=== PATIENT | male | born 1940 | race Caucasian/White ===

== ENCOUNTER 2018-09-17 02:05 | Inpatient (IN) | payer MEDICARE ==
[~2018-09-17] VITALS: Ht 177.8 cm; Wt 107.7 kg
[~2018-09-17 02:05] MED LIST: ACET-2119 PO; ASPI-611 PO; CARV-50 PO; FURO40TA4 PO; LOSA50TA64 PO; NITR0.4T48 SL; SPIR25TA PO
[2018-09-17 02:42] LABS: BASOPHILS # (AUTO) 0.1 X10'3 (0-0.2); BASOPHILS % (AUTO) 1.2 % (0-1); EOSINOPHILS # (AUTO) 0.2 X10'3 (0-0.9); EOSINOPHILS % (AUTO) 1.6 % (0-6); HEMOGLOBIN 14.9 g/dl (14.0-17.9); LYMPHOCYTES # (AUTO) 1.5 X10'3 (1.1-4.8); LYMPHOCYTES % (AUTO) 14.8 % (21-51); MEAN CORPUSCULAR HEMOGLOBIN 29.4 PG (27.0-31.0); MEAN CORPUSCULAR HGB CONC 32.4 % (33.0-36.5); MEAN CORPUSCULAR VOLUME 90.7 FL (78-98); MEAN PLATELET VOLUME 9.3 FL (7.4-10.4); MONOCYTES # (AUTO) 1.3 X10'3 (0-0.9); MONOCYTES % (AUTO) 12.7 % (2-12); NEUTROPHILS # (AUTO) 6.9 X10'3 (1.8-7.7); NEUTROPHILS % (AUTO) 69.7 % (42-75); PLATELET COUNT 222 X10'3 (140-440); RED BLOOD COUNT 5.07 X10'6 (4.70-6.10); RED CELL DISTRIBUTION WIDTH 16.8 % (11.5-14.5); WHITE BLOOD COUNT 9.9 X10'3 (4.5-11.0)
[2018-09-17 02:58] LABS: ALANINE AMINOTRANSFERASE 58 U/L (12-78); ALBUMIN 3.5 G/DL (3.4-5.0); ALBUMIN/GLOBULIN RATIO 1.3 (1.1-1.5); ALKALINE PHOSPHATASE 93 IU/L (46-116); ANION GAP 15 (8-16); ASPARTATE AMINO TRANSFERASE 45 U/L (10-37); BILIRUBIN,TOTAL 1.3 MG/DL (0.1-1.0); BLOOD UREA NITROGEN 50 MG/DL (7-18); BUN/CREATININE RATIO 31.3 (5.4-32.0); CALCIUM 8.3 MG/DL (8.5-10.1); CHLORIDE 101 MMOL/L (99-107); GLUCOSE 116 MG/DL (70-104); SODIUM 140 MMOL/L (135-145); TOTAL CARBON DIOXIDE 23.7 MMOL/L (24-32); TOTAL PROTEIN 6.1 G/DL (6.4-8.2); eGFR 42 ML/MIN
[2018-09-17 02:59] LABS: POTASSIUM 4.7 MMOL/L (3.5-5.1)
[2018-09-17] MEDS ORDERED: aspirin 81mg tab.chew PO ONE (03:50)
[2018-09-17] MEDS ORDERED: furosemide 10 MG/1 ML 10ml inj IV ONE (03:50)
[2018-09-17] MEDS ORDERED: LOSARTAN POTASSIUM 25 MG (03:51)
[2018-09-17] MEDS ORDERED: FUROSEMIDE 40 MG (03:51)
[2018-09-17] MEDS ORDERED: SPIRONOLACTONE 25 MG (03:51)
[2018-09-17] MEDS ORDERED: HYDROCODONE/ACETAMINOPHEN 10-3 (03:51)
[2018-09-17] MEDS ORDERED: METOLAZONE 5 MG (03:51)
[2018-09-17] MEDS ORDERED: HYDR-4353 PO (03:56)
[2018-09-17] MEDS ORDERED: ondansetron/PF 4mg/2ml inj IV PRN (04:25)
[2018-09-17] MEDS ORDERED: magnesium hydroxide 30ml (MOM) UD suspension PO PRN (04:25)
[2018-09-17] MEDS ORDERED: HYDROcodone/acetaminophen 5mg/325mg tablet PO PRN (04:25)
[2018-09-17] MEDS ORDERED: acetaminophen 325mg tablet PO PRN ×2 (04:25)
[2018-09-17] MEDS ORDERED: mag hydrox/Alum hydrox/simeth 30ml oral suspension PO PRN (04:25)
[2018-09-17] MEDS ORDERED: potassium Cl 20 mEq SR tablet PO PRN ×2 (04:25)
[2018-09-17] MEDS ORDERED: potassium Cl 40MEQ/NS 500ml 500 ML IV PRN ×2 (04:25)
[2018-09-17] MEDS ORDERED: nitroGLYCERIN 0.4mg SUBLingual tab SL PRN (04:30)
--- NOTE | 2018-09-17 05:55 | NUR ---
This nurse attempted to call report to pcu nurse at 0548, nurse refused to take report and stated she will have the day shift nurse call me back
--- NOTE | 2018-09-17 06:17 | NUR ---
RECEIVED ON A WHEELCHAIR,ALERT AND ORIENTED X4.AWAITING FOR AIR TRAFFIC SUPERVISOR TO RECEIVED REPORT.
--- NOTE | 2018-09-17 06:31 | NUR ---
attempted to call report for a second time at 06 after floor nurse stated she would have day shift nurse contact me at [phone], once again floor nurses refused to take report. Day shift rn Nelson given sbar report on this pt
--- NOTE | 2018-09-17 06:50 | NUR ---
Patient in room ED 9. I have received report from RUTH RAMIREZ and had the opportunity to ask questions and assume patient care. Pt transferred to room 3026B on PCU. Pt is alert and oriented, needs addressed. Patient reports no pain or SOB. Vitals stable.
[2018-09-17 07:00] VITALS: BP 123/71
[2018-09-17] MEDS: aspirin 81mg tablet.DR PO SCH (08:00)
[2018-09-17] MEDS: K and/or MAG REPLACEMENT MC SCH (08:00)
[2018-09-17] MEDS: carVEDilol 12.5mg tablet PO SCH ×2 (09:12→20:01)
[2018-09-17] MEDS: furosemide 10 MG/1 ML 10ml inj IV SCH ×2 (09:13→15:29)
[2018-09-17] MEDS: spironolactone 25 MG tablet PO SCH (09:14)
[2018-09-17] MEDS: aspirin 81mg tab.chew PO SCH (09:14)
[2018-09-17] MEDS: enoxaparin 40mg/0.4ml syringe SUBCUT SCH (09:16)
[2018-09-17 11:00] VITALS: BP 107/70
[2018-09-17 15:00] VITALS: BP_SYST 102; BP_SYST 82; BP_DIAS 41; BP_DIAS 62
[2018-09-17] MEDS ORDERED: lactose-reduced food (Ensure Enlive) - 237ml bottle PO SCH (18:00)
--- NOTE | 2018-09-17 18:00 | NUR ---
Patient in room PCU 3026. I have received report from RUTH Aburto and had the opportunity to ask questions and assume patient care.
--- NOTE | 2018-09-17 18:30 | NUR ---
Problems reprioritized. Patient report given, questions answered & plan of care reviewed with RUTH ZACARIAS.
[2018-09-17 19:00] VITALS: BP 102/62
[2018-09-17] MEDS ORDERED: temazepam 15mg capsule PO PRN (21:00)
[2018-09-17] MEDS ORDERED: losartan 50mg tablet PO SCH (21:00)
[2018-09-17 23:00] VITALS: BP 93/56
[2018-09-18] MEDS: HYDROcodone/acetaminophen 10/325mg tab PO PRN ×2 (00:20→08:35)
[2018-09-18] MEDS: furosemide 10 MG/1 ML 10ml inj IV SCH ×2 (00:20→08:39)
[2018-09-18 03:00] VITALS: BP 89/57
[2018-09-18 04:46] LABS: BASOPHILS % (AUTO) 0.4 % (0-1); EOSINOPHILS # (AUTO) 0.2 X10'3 (0-0.9); EOSINOPHILS % (AUTO) 2.4 % (0-6); HEMATOCRIT 42.5 % (42.0-52.0); HEMOGLOBIN 13.9 g/dl (14.0-17.9); LYMPHOCYTES # (AUTO) 1.7 X10'3 (1.1-4.8); LYMPHOCYTES % (AUTO) 20.5 % (21-51); MEAN CORPUSCULAR HEMOGLOBIN 29.6 PG (27.0-31.0); MEAN CORPUSCULAR HGB CONC 32.7 % (33.0-36.5); MEAN CORPUSCULAR VOLUME 90.6 FL (78-98); MEAN PLATELET VOLUME 9.4 FL (7.4-10.4); MONOCYTES # (AUTO) 1.1 X10'3 (0-0.9); MONOCYTES % (AUTO) 13.8 % (2-12); NEUTROPHILS # (AUTO) 5.2 X10'3 (1.8-7.7); NEUTROPHILS % (AUTO) 62.9 % (42-75); PLATELET COUNT 180 X10'3 (140-440); RED BLOOD COUNT 4.69 X10'6 (4.70-6.10); RED CELL DISTRIBUTION WIDTH 16.8 % (11.5-14.5); WHITE BLOOD COUNT 8.3 X10'3 (4.5-11.0)
[2018-09-18 05:02] LABS: ALBUMIN 3.2 G/DL (3.4-5.0); ANION GAP 9 (8-16); BLOOD UREA NITROGEN 53 MG/DL (7-18); BUN/CREATININE RATIO 30.5 (5.4-32.0); CALCIUM 8.5 MG/DL (8.5-10.1); CHLORIDE 98 MMOL/L (99-107); CHOL/HDL RATIO 3.7 (0.00-4.99); CHOLESTEROL 73 MG/DL (0-200); CREATININE 1.74 MG/DL (0.60-1.10); GLUCOSE 120 MG/DL (70-104); HDL CHOLESTEROL 20 MG/DL (35-60); LDL CHOLESTEROL 57 MG/DL (50-100); MAGNESIUM 2.2 MG/DL (1.5-2.4); PHOSPHORUS 4.2 MG/DL (2.3-4.5); POTASSIUM 3.7 MMOL/L (3.5-5.1); SODIUM 138 MMOL/L (135-145); TRIGLYCERIDES 53 MG/DL (20-135); eGFR 38 ML/MIN
[2018-09-18 06:00] VITALS: BP 91/55
--- NOTE | 2018-09-18 06:30 | NUR ---
Patient in room PCU 3026. I have received report from RUTH Cramer and had the opportunity to ask questions and assume patient care.
[2018-09-18] MEDS: aspirin 81mg tablet.DR PO SCH (08:00)
[2018-09-18] MEDS: carVEDilol 12.5mg tablet PO SCH (08:00)
[2018-09-18] MEDS: K and/or MAG REPLACEMENT MC SCH (08:00)
[2018-09-18] MEDS: aspirin 81mg tab.chew PO SCH (08:00)
[2018-09-18] MEDS: enoxaparin 40mg/0.4ml syringe SUBCUT SCH (08:33)
[2018-09-18] MEDS: spironolactone 25 MG tablet PO SCH (08:34)
--- NOTE | 2018-09-18 08:35 | NUR ---
bp @ 0600 91/55. BP @0835 101/63. Lasix given. held coreg 12.5 mg, due to low bp trend.
[2018-09-18 11:00] VITALS: BP 99/67
--- NOTE | 2018-09-18 14:35 | NUR ---
PATIENT LEFT ALERT AND ORIENTED, STABLE FOR DISCHARGE. PATIENT RECEIVED ALL PATIENT TEACHING ALONG WITH DISCHARGE PACKET. PATIENT KNOWS THAT WALKER IS TO BE DELIVERED TO HOME. PATIENT UNDERSTANDS TO FOLLOW UP WITH PCP WITHIN 1 WEEK AND TO RESUME ALL CURRENT MEDICATIONS. IV REMOVED, CANNULA INTACT. TELE REMOVED AND RETURNED TO CUSTOMER CONSULTING MANAGER. ALL QUESTIONS AND CONCERNS ADDRESSED. PATIENT WHEELED DOWNSTAIRS TO LEAVE VIA PRIVATE VEHICLE WITH FAMILY MEMBER. ALL BELONGINGS LEFT WITH PATIENT. ROOM STRIPPED.
== END 2018-09-18 14:36 | disposition home health service (06) | DRG 280 ==
LOC: ER 02:05 → ED HOLD 04:24 → PCU 3S 07:58
PROVIDERS: ADMIT Hospitalist; ATTEND Family Medicine
DX: I13.0 Hypertensive heart and chronic kidney disease with heart failure and stage 1 through stage 4 chronic kidney disease, or unspecified chronic kidney disease (principal); I21.A1 Myocardial infarction type 2; I50.23 Acute on chronic systolic (congestive) heart failure; I42.9 Cardiomyopathy, unspecified; N18.9 Chronic kidney disease, unspecified; I25.10 Atherosclerotic heart disease of native coronary artery without angina pectoris; Z60.2 Problems related to living alone; Z95.810 Presence of automatic (implantable) cardiac defibrillator; Z88.1 Allergy status to other antibiotic agents; Z87.891 Personal history of nicotine dependence
CPT/HCPCS: 36415; 71045; 80048; 80053; 80061; 83735; 83880; 84100; 84484; 85025; 87070; 93005; 96374; 97110; 97116; 97162; 99285; G0378; J1650; J1940

== ENCOUNTER 2020-07-06 17:11 | Inpatient (IN) | payer MEDICARE ==
[~2020-07-06] VITALS: Ht 175.3 cm; Wt 98.8 kg
[~2020-07-06 17:11] MED LIST changes: -ACET-2119 PO; -ASPI-611 PO; -CARV-50 PO; +CARV25TA2 PO; +FURO-149 PO; -FURO40TA4 PO; +HYDR-3972 PO; +LOSA25TA41 PO; -LOSA50TA64 PO; -NITR0.4T48 SL; -SPIR25TA PO; +SPIR25TA5 PO
[2020-07-06] MEDS ORDERED: furosemide 10 MG/1 ML 10ml inj IV ONE ×2 (18:50→20:10)
[2020-07-06 19:11] LABS: BASOPHILS # (AUTO) 0.1 X10'3 (0-0.2); BASOPHILS % (AUTO) 0.6 % (0-1); EOSINOPHILS % (AUTO) 0.3 % (0-6); HEMATOCRIT 49.5 % (42.0-52.0); LYMPHOCYTES # (AUTO) 2.4 X10'3 (1.1-4.8); LYMPHOCYTES % (AUTO) 20.8 % (21-51); MEAN CORPUSCULAR HEMOGLOBIN 29.7 PG (27.0-31.0); MEAN CORPUSCULAR HGB CONC 32.3 g/dL (33.0-36.5); MEAN CORPUSCULAR VOLUME 91.7 FL (78-98); MEAN PLATELET VOLUME 9.8 FL (7.4-10.4); MONOCYTES # (AUTO) 1.6 X10'3 (0-0.9); NEUTROPHILS # (AUTO) 7.4 X10'3 (1.8-7.7); NEUTROPHILS % (AUTO) 64.3 % (42-75); PLATELET COUNT 188 X10'3 (140-440); RED CELL DISTRIBUTION WIDTH 17.3 % (11.5-14.5); WHITE BLOOD COUNT 11.5 X10'3 (4.5-11.0)
[2020-07-06 19:23] LABS: ALANINE AMINOTRANSFERASE 32 U/L (12-78); ALBUMIN 3.9 G/DL (3.4-5.0); ALBUMIN/GLOBULIN RATIO 1.2 (1.1-1.5); ALKALINE PHOSPHATASE 75 IU/L (46-116); ANION GAP 11 (8-16); ASPARTATE AMINO TRANSFERASE 23 U/L (10-37); BILIRUBIN,TOTAL 2.1 MG/DL (0.1-1.0); BLOOD UREA NITROGEN 112 MG/DL (7-18); BUN/CREATININE RATIO 52.6 (5.4-32.0); CHLORIDE 100 MMOL/L (99-107); CREATININE 2.13 MG/DL (0.60-1.10); GLUCOSE 106 MG/DL (70-104); POTASSIUM 4.7 MMOL/L (3.5-5.1); SODIUM 136 MMOL/L (135-145); TOTAL CARBON DIOXIDE 24.6 MMOL/L (24-32); TOTAL PROTEIN 7.2 G/DL (6.4-8.2); eGFR 30 ML/MIN
[2020-07-06] MEDS ORDERED: heparin 10,000 units/1 ML INJ IV ONE (19:35)
[2020-07-06] MEDS: heparin 25,000 UNIT/250ml bag 250 ML IV SCH (19:50)
[2020-07-06] MEDS ORDERED: ZAR2.5T PO (19:56)
[2020-07-06] MEDS ORDERED: ondansetron/PF 4mg/2ml inj IV ONE ×2 (20:25→20:45)
[2020-07-06 20:40] LABS: ABG BASE EXCESS -2.3 mmol/L (-2.0-2.0); ABG OXYGEN SATURATION 95.9 % (94-97); ABG PCO2 (T) 41.5 mmHg (35.0-48.0); ABG PO2 (T) 89.9 mmHg (75.0-100.0); ALLEN'S TEST POSITIVE; FCOHb 0.9 % (0.0-3.9); FLOW 2 L/min; FMetHb 0.2 % (0.0-1.5); FO2Hb 94.8 % (94-97)
[2020-07-06] MEDS ORDERED: nitroGLYCERIN 1gm ointment UD TP ONE (20:55)
[2020-07-06 22:21] LABS: C-REACTIVE PROTEIN 1.87 MG/DL (0.0-0.5)
[2020-07-06] MEDS ORDERED: CefTRIAXone/D5W-Rocephin 1gm 50 ML IV ONE (23:25)
[2020-07-07 01:12] LABS: BASOPHILS # (AUTO) 0.1 X10'3 (0-0.2); BASOPHILS % (AUTO) 0.9 % (0-1); EOSINOPHILS % (AUTO) 0.1 % (0-6); HEMATOCRIT 48.2 % (42.0-52.0); LYMPHOCYTES # (AUTO) 2.5 X10'3 (1.1-4.8); LYMPHOCYTES % (AUTO) 22.3 % (21-51); MEAN CORPUSCULAR HEMOGLOBIN 30.4 PG (27.0-31.0); MEAN CORPUSCULAR HGB CONC 33.2 g/dL (33.0-36.5); MEAN CORPUSCULAR VOLUME 91.8 FL (78-98); MEAN PLATELET VOLUME 9.3 FL (7.4-10.4); MONOCYTES # (AUTO) 1.5 X10'3 (0-0.9); MONOCYTES % (AUTO) 13.7 % (2-12); NEUTROPHILS # (AUTO) 6.9 X10'3 (1.8-7.7); PLATELET COUNT 163 X10'3 (140-440); RED BLOOD COUNT 5.25 X10'6 (4.70-6.10); RED CELL DISTRIBUTION WIDTH 16.8 % (11.5-14.5)
[2020-07-07] MEDS ORDERED: HYDROcodone/acetaminophen 10/325mg tab PO ONE (01:35)
[2020-07-07] MEDS ORDERED: HYDROcodone/acetaminophen 5mg/325mg tablet PO PRN (01:50)
[2020-07-07] MEDS ORDERED: magnesium Cl slow-release 64mg tablet PO PRN (01:50)
[2020-07-07] MEDS ORDERED: acetaminophen 325mg tablet PO PRN ×2 (01:50)
[2020-07-07] MEDS ORDERED: mag hydrox/Alum hydrox/simeth 30ml oral suspension PO PRN (01:50)
[2020-07-07] MEDS ORDERED: potassium CL 10mEq/100ml bag 100 ML IV PRN ×2 (01:50)
[2020-07-07] MEDS ORDERED: magnesium 2GM in 50ml NS 50 ML IV PRN (01:50)
[2020-07-07] MEDS ORDERED: potassium Cl 20 mEq SR tablet PO PRN ×2 (01:50)
[2020-07-07] MEDS ORDERED: ondansetron/PF 4mg/2ml inj IV PRN (01:50)
[2020-07-07] MEDS ORDERED: magnesium 4gm in 100ml NS 100 ML IV PRN (01:50)
[2020-07-07] MEDS ORDERED: HYDROcodone/acetaminophen 10/325mg tab PO PRN (01:55)
--- NOTE | 2020-07-07 05:40 | NUR ---
Received report from Beba MIRANDA in the ER. Patient is going to be brought to PCU and go into room 3024Q.
--- NOTE | 2020-07-07 05:50 | NUR ---
Patient just got here from ER. He is A&Ox4 and in no apparent distress. He came up with all of his belongings and is in a bed resting comfortably. Hooked patient up to tele monitor.
--- NOTE | 2020-07-07 06:02 | NUR ---
Heparin was on hold when patient came up from ER. PTT 126, unknown stop time. Tried to call ER nurse but was unable to get a hold of nurse. Lab trung new PTT at 0533, awaiting results.
--- NOTE | 2020-07-07 06:06 | NUR ---
Per ER nurse heparin was stopped right before patient came up from ER.
--- NOTE | 2020-07-07 06:21 | NUR ---
Problems reprioritized. Patient report given, questions answered & plan of care reviewed with Haylie MIRANDA.
--- NOTE | 2020-07-07 06:30 | NUR ---
Patient in room PCU 3026. I have received report from Rachele and had the opportunity to ask questions and assume patient care.
[2020-07-07] MEDS: furosemide 40mg/4ml inj IV SCH ×2 (08:00→20:00)
[2020-07-07] MEDS: spironolactone 25 MG tablet PO SCH (08:00)
[2020-07-07] MEDS: losartan 25mg tablet PO SCH (08:00)
[2020-07-07] MEDS: enoxaparin 40mg/0.4ml syringe SUBCUT SCH ×2 (08:00→15:54)
[2020-07-07] MEDS: K and/or MAG REPLACEMENT MC SCH ×2 (08:00→20:00)
[2020-07-07] MEDS: metolazone 2.5mg tablet PO SCH (08:00)
[2020-07-07] MEDS: heparin 25,000 UNIT/250ml bag 250 ML IV SCH (08:53)
[2020-07-07 10:48] VITALS: BP 104/58
[2020-07-07 11:00] VITALS: BP 126/72
--- NOTE | 2020-07-07 13:49 | NUR ---
promotional table spacer promotional table spacer Page Sent promotional table spacer PAGER ID: [phone] MESSAGE: [id number] Boubacar Pt came up from ED on Heparin. Pharmacy wants my heparin drip stopped now that order is over 12 hours. Please call #[phone] Haylie
[2020-07-07] MEDS ORDERED: heparin 10,000 units/1 ML INJ IV ONE (13:55)
[2020-07-07] MEDS ORDERED: heparin 25,000 UNIT/250ml bag 250 ML IV SCH (13:55)
[2020-07-07] MEDS ORDERED: heparin 10,000 units/1 ML INJ IV PRN (13:55)
[2020-07-07 15:00] VITALS: BP 104/72
--- NOTE | 2020-07-07 15:39 | NUR ---
Page Sent promotional table spacer PAGER ID: [phone] MESSAGE: [phone] Frederick Hamlin Just to clarify you want me to stop heparin and give AM dose of lovenox. Please Call #[phone] Haylie (118 character message out of a maximum [phone])
--- NOTE | 2020-07-07 15:47 | NUR ---
Spoke with Dr Shen on her cell phone and she confirmed to stop the Heparin and give the lovenox.
[2020-07-07 18:00] VITALS: BP 94/66
--- NOTE | 2020-07-07 18:45 | NUR ---
Problems reprioritized. Patient report given, questions answered & plan of care reviewed with Anais.
[2020-07-07] MEDS ORDERED: temazepam 15mg capsule PO PRN (21:00)
[2020-07-07 22:00] VITALS: BP 115/63
[2020-07-07] MEDS: HYDROcodone/acetaminophen 10/325mg tab PO PRN (23:28)
[2020-07-08] VITALS (9 sets, daily range): BP systolic 93–157; BP diastolic 59–138
--- NOTE | 2020-07-08 06:00 | NUR ---
Patient in room PCU 3026. I have received report from RUTH Manzo and had the opportunity to ask questions and assume patient care.
[2020-07-08 06:48] LABS: BASOPHILS # (AUTO) 0.1 X10'3 (0-0.2); BASOPHILS % (AUTO) 0.7 % (0-1); EOSINOPHILS # (AUTO) 0.2 X10'3 (0-0.9); EOSINOPHILS % (AUTO) 1.7 % (0-6); HEMATOCRIT 50.9 % (42.0-52.0); HEMOGLOBIN 16.6 g/dl (14.0-17.9); LYMPHOCYTES # (AUTO) 3.2 X10'3 (1.1-4.8); LYMPHOCYTES % (AUTO) 29.6 % (21-51); MEAN CORPUSCULAR HEMOGLOBIN 30.2 PG (27.0-31.0); MEAN CORPUSCULAR HGB CONC 32.7 g/dL (33.0-36.5); MEAN CORPUSCULAR VOLUME 92.4 FL (78-98); MEAN PLATELET VOLUME 9.8 FL (7.4-10.4); MONOCYTES # (AUTO) 1.6 X10'3 (0-0.9); MONOCYTES % (AUTO) 14.5 % (2-12); NEUTROPHILS # (AUTO) 5.8 X10'3 (1.8-7.7); NEUTROPHILS % (AUTO) 53.5 % (42-75); PLATELET COUNT 172 X10'3 (140-440); RED CELL DISTRIBUTION WIDTH 17.4 % (11.5-14.5); WHITE BLOOD COUNT 10.8 X10'3 (4.5-11.0)
[2020-07-08 07:01] LABS: ALANINE AMINOTRANSFERASE 43 U/L (12-78); ALBUMIN 3.9 G/DL (3.4-5.0); ALBUMIN/GLOBULIN RATIO 1.2 (1.1-1.5); ALKALINE PHOSPHATASE 69 IU/L (46-116); ANION GAP 14 (8-16); ASPARTATE AMINO TRANSFERASE 32 U/L (10-37); BILIRUBIN,TOTAL 1.7 MG/DL (0.1-1.0); BLOOD UREA NITROGEN 121 MG/DL (7-18); BUN/CREATININE RATIO 44.5 (5.4-32.0); CALCIUM 9.4 MG/DL (8.5-10.1); CHLORIDE 101 MMOL/L (99-107); CHOL/HDL RATIO 4.9 (0.00-4.99); CHOLESTEROL 98 MG/DL (0-200); CREATININE 2.72 MG/DL (0.60-1.10); GLUCOSE 116 MG/DL (70-104); HDL CHOLESTEROL 20 MG/DL (35-60); LDL CHOLESTEROL 82 MG/DL (50-100); MAGNESIUM 2.7 MG/DL (1.5-2.4); POTASSIUM 4.2 MMOL/L (3.5-5.1); SODIUM 140 MMOL/L (135-145); TOTAL CARBON DIOXIDE 25.4 MMOL/L (24-32); TOTAL PROTEIN 7.2 G/DL (6.4-8.2); TRIGLYCERIDES 56 MG/DL (20-135); eGFR 23 ML/MIN
[2020-07-08] MEDS: K and/or MAG REPLACEMENT MC SCH ×2 (08:00→20:00)
[2020-07-08] MEDS: metolazone 2.5mg tablet PO SCH (09:00)
[2020-07-08] MEDS: spironolactone 25 MG tablet PO SCH (09:00)
[2020-07-08] MEDS: furosemide 40mg/4ml inj IV SCH (09:00)
[2020-07-08] MEDS: enoxaparin 40mg/0.4ml syringe SUBCUT SCH (09:00)
[2020-07-08] MEDS: HYDROcodone/acetaminophen 10/325mg tab PO PRN ×2 (09:04→19:59)
[2020-07-08] MEDS: losartan 25mg tablet PO SCH (11:51)
[2020-07-08] MEDS: normal saline 1000ml 1,000 ML IV SCH (15:58)
[2020-07-08] MEDS ORDERED: DOBUTamine-DoBUTrex 500mg/D5W 250 ML IV SCH (17:15)
--- NOTE | 2020-07-08 17:54 | NUR ---
Dobutamine delayed, I cannot start the dobutamine, but it was too late for Charge to transfer the patient to another inventory controller. inventory controller will receive patient tonight.
--- NOTE | 2020-07-08 18:06 | NUR ---
Problems reprioritized. Patient report given, questions answered & plan of care reviewed with Tylor RN.
--- NOTE | 2020-07-08 18:30 | NUR ---
Patient in room PCU 3026. I have received report from Yue MIRANDA and had the opportunity to ask questions and assume patient care.
[2020-07-09] VITALS (17 sets, daily range): BP systolic 95–128; BP diastolic 53–99
[2020-07-09] MEDS: normal saline 1000ml 1,000 ML IV SCH ×3 (01:34→20:20)
[2020-07-09 05:59] LABS: BASOPHILS # (AUTO) 0.1 X10'3 (0-0.2); BASOPHILS % (AUTO) 0.7 % (0-1); EOSINOPHILS # (AUTO) 0.2 X10'3 (0-0.9); EOSINOPHILS % (AUTO) 2.8 % (0-6); HEMATOCRIT 46.6 % (42.0-52.0); HEMOGLOBIN 15.4 g/dl (14.0-17.9); LYMPHOCYTES # (AUTO) 1.8 X10'3 (1.1-4.8); LYMPHOCYTES % (AUTO) 24.4 % (21-51); MEAN CORPUSCULAR HEMOGLOBIN 30.7 PG (27.0-31.0); MEAN CORPUSCULAR HGB CONC 33.1 g/dL (33.0-36.5); MEAN CORPUSCULAR VOLUME 92.8 FL (78-98); MEAN PLATELET VOLUME 9.5 FL (7.4-10.4); MONOCYTES # (AUTO) 0.7 X10'3 (0-0.9); MONOCYTES % (AUTO) 10.2 % (2-12); NEUTROPHILS # (AUTO) 4.5 X10'3 (1.8-7.7); NEUTROPHILS % (AUTO) 61.9 % (42-75); PLATELET COUNT 133 X10'3 (140-440); RED BLOOD COUNT 5.02 X10'6 (4.70-6.10); RED CELL DISTRIBUTION WIDTH 17.5 % (11.5-14.5); WHITE BLOOD COUNT 7.3 X10'3 (4.5-11.0)
[2020-07-09 06:28] LABS: ALANINE AMINOTRANSFERASE 42 U/L (12-78); ALBUMIN 3.6 G/DL (3.4-5.0); ALBUMIN/GLOBULIN RATIO 1.2 (1.1-1.5); ALKALINE PHOSPHATASE 63 IU/L (46-116); ANION GAP 12 (8-16); ASPARTATE AMINO TRANSFERASE 32 U/L (10-37); BILIRUBIN,TOTAL 1.5 MG/DL (0.1-1.0); BLOOD UREA NITROGEN 105 MG/DL (7-18); BUN/CREATININE RATIO 44.5 (5.4-32.0); CALCIUM 8.8 MG/DL (8.5-10.1); CHLORIDE 101 MMOL/L (99-107); CREATININE 2.36 MG/DL (0.60-1.10); GLUCOSE 115 MG/DL (70-104); MAGNESIUM 2.1 MG/DL (1.5-2.4); POTASSIUM 3.5 MMOL/L (3.5-5.1); SODIUM 140 MMOL/L (135-145); TOTAL CARBON DIOXIDE 26.6 MMOL/L (24-32); TOTAL PROTEIN 6.5 G/DL (6.4-8.2); eGFR 27 ML/MIN
--- NOTE | 2020-07-09 06:43 | NUR ---
Patient in room PCU 3026. I have received report from Tylor RN and had the opportunity to ask questions and assume patient care.
--- NOTE | 2020-07-09 06:51 | NUR ---
Problems reprioritized. Patient report given, questions answered & plan of care reviewed with Choco MIRANDA.
[2020-07-09] MEDS: enoxaparin 40mg/0.4ml syringe SUBCUT SCH (07:50)
[2020-07-09] MEDS: losartan 25mg tablet PO SCH (07:50)
[2020-07-09] MEDS: HYDROcodone/acetaminophen 10/325mg tab PO PRN ×3 (07:51→22:41)
[2020-07-09] MEDS: magnesium hydroxide 30ml (MOM) UD suspension PO PRN (07:56)
[2020-07-09] MEDS: K and/or MAG REPLACEMENT MC SCH ×2 (08:00→20:00)
--- NOTE | 2020-07-09 14:37 | NUR ---
PAGER ID: [phone] MESSAGE: [id number] Frederick Hamlin: DAGOBERTO MRSA nasal swab is positive per micro. thanks sam
--- NOTE | 2020-07-09 18:27 | NUR ---
Problems reprioritized. Patient report given, questions answered & plan of care reviewed with Chandana MIRANDA.
--- NOTE | 2020-07-09 23:52 | NUR ---
spoke with Dr. Shen regarding pt ECG rhythm having frequent SVT w/ BBB runs sustaining 6-15 seconds, advised Dr. Shen pt is on a dobutamine gtt, NS at 100ml/hr, potassium and magnesium are WNL, and BUN/creatinine are 105/2.36. Received orders from Dr. Shen to DC the dobutamine drip, and NS, and to give NS IV 250ml bolus X1 for SBP < 90.
[2020-07-10] VITALS (7 sets, daily range): BP systolic 96–123; BP diastolic 72–102
[2020-07-10] MEDS ORDERED: normal saline 250ml IV soln 250 ML IV PRN (00:05)
[2020-07-10] MEDS: HYDROcodone/acetaminophen 10/325mg tab PO PRN ×3 (04:48→23:49)
[2020-07-10 05:52] LABS: ALANINE AMINOTRANSFERASE 38 U/L (12-78); ALBUMIN 3.7 G/DL (3.4-5.0); ALBUMIN/GLOBULIN RATIO 1.2 (1.1-1.5); ALKALINE PHOSPHATASE 78 IU/L (46-116); ANION GAP 10 (8-16); ASPARTATE AMINO TRANSFERASE 30 U/L (10-37); BILIRUBIN,TOTAL 1.4 MG/DL (0.1-1.0); BLOOD UREA NITROGEN 63 MG/DL (7-18); BUN/CREATININE RATIO 37.3 (5.4-32.0); CALCIUM 8.7 MG/DL (8.5-10.1); CHLORIDE 104 MMOL/L (99-107); CREATININE 1.69 MG/DL (0.60-1.10); GLUCOSE 147 MG/DL (70-104); MAGNESIUM 2.3 MG/DL (1.5-2.4); POTASSIUM 4.4 MMOL/L (3.5-5.1); SODIUM 140 MMOL/L (135-145); TOTAL CARBON DIOXIDE 26.3 MMOL/L (24-32); TOTAL PROTEIN 6.8 G/DL (6.4-8.2); eGFR 40 ML/MIN
--- NOTE | 2020-07-10 06:05 | NUR ---
Problems reprioritized. Patient report given, questions answered & plan of care reviewed with Tiffanie MIRANDA.
[2020-07-10 06:17] LABS: BASOPHILS % (AUTO) 0.5 % (0-1); EOSINOPHILS # (AUTO) 0.2 X10'3 (0-0.9); EOSINOPHILS % (AUTO) 2.5 % (0-6); HEMATOCRIT 49.4 % (42.0-52.0); HEMOGLOBIN 16.3 g/dl (14.0-17.9); LYMPHOCYTES # (AUTO) 1.5 X10'3 (1.1-4.8); MEAN CORPUSCULAR HEMOGLOBIN 30.6 PG (27.0-31.0); MEAN CORPUSCULAR VOLUME 92.9 FL (78-98); MEAN PLATELET VOLUME 9.2 FL (7.4-10.4); MONOCYTES % (AUTO) 15.4 % (2-12); NEUTROPHILS % (AUTO) 59.6 % (42-75); PLATELET COUNT 163 X10'3 (140-440); RED BLOOD COUNT 5.31 X10'6 (4.70-6.10); RED CELL DISTRIBUTION WIDTH 17.9 % (11.5-14.5); WHITE BLOOD COUNT 6.7 X10'3 (4.5-11.0)
--- NOTE | 2020-07-10 06:47 | NUR ---
Patient in room U 3026. I have received report from RUTH Ellington and had the opportunity to ask questions and assume patient care. Patient awake in bed and in no acute distress.
[2020-07-10] MEDS: losartan 25mg tablet PO SCH (07:24)
[2020-07-10] MEDS: enoxaparin 40mg/0.4ml syringe SUBCUT SCH (07:26)
[2020-07-10] MEDS: K and/or MAG REPLACEMENT MC SCH ×2 (08:00→20:00)
[2020-07-10] MEDS: magnesium hydroxide 30ml (MOM) UD suspension PO PRN (11:22)
--- NOTE | 2020-07-10 12:11 | NUR ---
Paged echo regarding echo that was ordered for the patient.
--- NOTE | 2020-07-10 15:53 | NUR ---
Student Medication Administration: For this medication-pass time frame, all medication were reviewed, dispensed, administered and documented per hospital policy by iwona Hagen nurse.
--- NOTE | 2020-07-10 15:53 | NUR ---
Student documentation: I have reviewed and agree with all interventions, assessments performed and documented by Hieu, student nurse.
--- NOTE | 2020-07-10 18:34 | NUR ---
Problems reprioritized. Patient report given, questions answered & plan of care reviewed with RUTH Ellington. Patient stable at transfer of care.
--- NOTE | 2020-07-10 18:56 | NUR ---
Patient in room PCU 3026. I have received report from MAGO MIRANDA and had the opportunity to ask questions and assume patient care.
[2020-07-11 02:00] VITALS: BP 124/100
--- NOTE | 2020-07-11 06:03 | NUR ---
Student documentation: I have reviewed and agree with all interventions, assessments performed and documented by Jose F KATHLEEN. Student Medication Administration: For this medication-pass time frame, all medication were reviewed, dispensed, administered and documented per hospital policy by Jose F Nieto RN.
--- NOTE | 2020-07-11 06:24 | NUR ---
Problems reprioritized. Patient report given, questions answered & plan of care reviewed with Carolann MIRANDA.
[2020-07-11 06:50] LABS: BASOPHILS % (AUTO) 0.5 % (0-1); EOSINOPHILS # (AUTO) 0.1 X10'3 (0-0.9); EOSINOPHILS % (AUTO) 1.9 % (0-6); HEMATOCRIT 48.9 % (42.0-52.0); HEMOGLOBIN 15.8 g/dl (14.0-17.9); LYMPHOCYTES # (AUTO) 2.1 X10'3 (1.1-4.8); LYMPHOCYTES % (AUTO) 27.3 % (21-51); MEAN CORPUSCULAR HEMOGLOBIN 30.1 PG (27.0-31.0); MEAN CORPUSCULAR HGB CONC 32.4 g/dL (33.0-36.5); MEAN CORPUSCULAR VOLUME 93.1 FL (78-98); MEAN PLATELET VOLUME 9.4 FL (7.4-10.4); MONOCYTES # (AUTO) 1.4 X10'3 (0-0.9); MONOCYTES % (AUTO) 18.3 % (2-12); NEUTROPHILS # (AUTO) 4.1 X10'3 (1.8-7.7); PLATELET COUNT 162 X10'3 (140-440); RED BLOOD COUNT 5.25 X10'6 (4.70-6.10); RED CELL DISTRIBUTION WIDTH 17.8 % (11.5-14.5); WHITE BLOOD COUNT 7.8 X10'3 (4.5-11.0)
[2020-07-11 06:56] LABS: ALANINE AMINOTRANSFERASE 40 U/L (12-78); ALBUMIN 3.8 G/DL (3.4-5.0); ALBUMIN/GLOBULIN RATIO 1.2 (1.1-1.5); ALKALINE PHOSPHATASE 69 IU/L (46-116); ANION GAP 10 (8-16); ASPARTATE AMINO TRANSFERASE 34 U/L (10-37); BILIRUBIN,TOTAL 1.2 MG/DL (0.1-1.0); BLOOD UREA NITROGEN 56 MG/DL (7-18); BUN/CREATININE RATIO 35.9 (5.4-32.0); CALCIUM 8.9 MG/DL (8.5-10.1); CHLORIDE 102 MMOL/L (99-107); CREATININE 1.56 MG/DL (0.60-1.10); GLUCOSE 106 MG/DL (70-104); MAGNESIUM 2.4 MG/DL (1.5-2.4); SODIUM 137 MMOL/L (135-145); TOTAL CARBON DIOXIDE 25.3 MMOL/L (24-32); TOTAL PROTEIN 6.9 G/DL (6.4-8.2); eGFR 43 ML/MIN
[2020-07-11 06:59] LABS: POTASSIUM 5.2 MMOL/L (3.5-5.1)
[2020-07-11 07:00] VITALS: BP 130/82
[2020-07-11] MEDS: K and/or MAG REPLACEMENT MC SCH ×2 (08:00→20:00)
[2020-07-11] MEDS: losartan 25mg tablet PO SCH (08:24)
[2020-07-11] MEDS: HYDROcodone/acetaminophen 10/325mg tab PO PRN ×2 (08:24→20:08)
[2020-07-11] MEDS: enoxaparin 40mg/0.4ml syringe SUBCUT SCH (08:24)
[2020-07-11 08:59] LABS: ACANTHOCYTES FEW; ANISOCYTOSIS 1+; BURR CELLS FEW; ELLIPTOCYTES FEW; PLATELET ESTIMATE NORMAL; POLYCHROMASIA 1+; SCHISTOCYTES FEW
[2020-07-11 11:00] VITALS: BP 119/81
--- NOTE | 2020-07-11 12:44 | NUR ---
Patient requesting information on hospice care. MD and case management notified. Information provided to patient but will continue to be a full code at this time. PIV was infiltrated. Received orders from Dr. Kelly that the PIV may stay out at this time.
[2020-07-11 15:00] VITALS: BP 105/57
[2020-07-11 18:00] VITALS: BP 100/68
--- NOTE | 2020-07-11 18:17 | NUR ---
Problems reprioritized. Patient report given, questions answered & plan of care reviewed with Anais MIRANDA. Patient sitting on edge of bed, offers no complaints during last rounds.
--- NOTE | 2020-07-11 18:23 | NUR ---
Patient in room PCU 3026. I have received report from Carolann MIRANDA and had the opportunity to ask questions and assume patient care.
[2020-07-11 22:00] VITALS: BP 120/67
[2020-07-12 02:00] VITALS: BP 109/73
[2020-07-12] MEDS: HYDROcodone/acetaminophen 10/325mg tab PO PRN ×2 (04:23→20:15)
--- NOTE | 2020-07-12 06:21 | NUR ---
Problems reprioritized. Patient report given, questions answered & plan of care reviewed with Carolann MIRANDA.
[2020-07-12 06:36] LABS: ALANINE AMINOTRANSFERASE 36 U/L (12-78); ALBUMIN 3.9 G/DL (3.4-5.0); ALBUMIN/GLOBULIN RATIO 1.2 (1.1-1.5); ALKALINE PHOSPHATASE 67 IU/L (46-116); ANION GAP 10 (8-16); ASPARTATE AMINO TRANSFERASE 31 U/L (10-37); BILIRUBIN,TOTAL 1.8 MG/DL (0.1-1.0); BLOOD UREA NITROGEN 57 MG/DL (7-18); BUN/CREATININE RATIO 35.2 (5.4-32.0); CHLORIDE 101 MMOL/L (99-107); CREATININE 1.62 MG/DL (0.60-1.10); GLUCOSE 99 MG/DL (70-104); MAGNESIUM 2.3 MG/DL (1.5-2.4); POTASSIUM 5.2 MMOL/L (3.5-5.1); SODIUM 135 MMOL/L (135-145); TOTAL CARBON DIOXIDE 24.4 MMOL/L (24-32); TOTAL PROTEIN 7.1 G/DL (6.4-8.2); eGFR 42 ML/MIN
--- NOTE | 2020-07-12 06:39 | NUR ---
Patient in room PCU 3026. I have received report from Anais MIRANDA and had the opportunity to ask questions and assume patient care.
[2020-07-12 07:00] VITALS: BP 99/76
[2020-07-12] MEDS: K and/or MAG REPLACEMENT MC SCH ×2 (08:00→20:00)
--- NOTE | 2020-07-12 08:36 | NUR ---
PAGER ID: [phone] MESSAGE: [email or web address], THE CURRENT WEIGHT ON 3026B HAS BEEN DOCUMENTED AT 100.8kg. He is anxiously awaiting discharge, THX.
[2020-07-12] MEDS: losartan 25mg tablet PO SCH (08:48)
[2020-07-12] MEDS: enoxaparin 40mg/0.4ml syringe SUBCUT SCH (08:48)
[2020-07-12] MEDS ORDERED: furosemide 20MG tablet PO SCH (10:20)
[2020-07-12 11:00] VITALS: BP 105/78
--- NOTE | 2020-07-12 13:32 | NUR ---
Initial: 100% PO intake heart healthy diet. Meeting nutrition needs. Recommend: 1. continue heart healthy diet, fluid restriction per physician 2. bowel care as needed 3. wt per rx Addendum: 07/12/20 at [address] Amended: Links added.
--- NOTE | 2020-07-12 17:39 | NUR ---
PAGER ID: [phone] MESSAGE: [phone] Frederick Hamlin, requesting eye drops for dry eyes. Carolann MIRANDA [phone]
[2020-07-12] MEDS ORDERED: PEG 400/HYPROMELLOSE/GLYCERIN 15ml bottle EACHEYE PRN (17:45)
[2020-07-12 18:00] VITALS: BP 110/72
--- NOTE | 2020-07-12 18:18 | NUR ---
Problems reprioritized. Patient report given, questions answered & plan of care reviewed with Maral MIRANDA.
[2020-07-12] MEDS: furosemide 20MG tablet PO SCH (20:12)
[2020-07-12 22:00] VITALS: BP 110/74
[2020-07-13] VITALS (7 sets, daily range): BP systolic 88–130; BP diastolic 52–97
[2020-07-13] MEDS: HYDROcodone/acetaminophen 10/325mg tab PO PRN ×3 (02:42→21:05)
[2020-07-13] MEDS: losartan 25mg tablet PO SCH (07:57)
[2020-07-13] MEDS: enoxaparin 40mg/0.4ml syringe SUBCUT SCH (07:57)
[2020-07-13] MEDS: furosemide 20MG tablet PO SCH (07:57)
[2020-07-13] MEDS: K and/or MAG REPLACEMENT MC SCH ×2 (08:00→20:00)
[2020-07-13 09:02] LABS: BASOPHILS # (AUTO) 0.1 X10'3 (0-0.2); BASOPHILS % (AUTO) 0.6 % (0-1); EOSINOPHILS # (AUTO) 0.1 X10'3 (0-0.9); EOSINOPHILS % (AUTO) 1.7 % (0-6); HEMOGLOBIN 16.2 g/dl (14.0-17.9); LYMPHOCYTES # (AUTO) 2.6 X10'3 (1.1-4.8); MEAN CORPUSCULAR HEMOGLOBIN 29.9 PG (27.0-31.0); MEAN CORPUSCULAR HGB CONC 32.4 g/dL (33.0-36.5); MEAN CORPUSCULAR VOLUME 92.1 FL (78-98); MEAN PLATELET VOLUME 9.3 FL (7.4-10.4); MONOCYTES # (AUTO) 1.4 X10'3 (0-0.9); MONOCYTES % (AUTO) 15.3 % (2-12); NEUTROPHILS # (AUTO) 4.8 X10'3 (1.8-7.7); NEUTROPHILS % (AUTO) 53.4 % (42-75); PLATELET COUNT 152 X10'3 (140-440); RED BLOOD COUNT 5.42 X10'6 (4.70-6.10); RED CELL DISTRIBUTION WIDTH 17.7 % (11.5-14.5); WHITE BLOOD COUNT 8.9 X10'3 (4.5-11.0)
[2020-07-13 09:19] LABS: ALANINE AMINOTRANSFERASE 35 U/L (12-78); ALBUMIN 3.9 G/DL (3.4-5.0); ALBUMIN/GLOBULIN RATIO 1.2 (1.1-1.5); ALKALINE PHOSPHATASE 74 IU/L (46-116); ANION GAP 11 (8-16); ASPARTATE AMINO TRANSFERASE 28 U/L (10-37); BLOOD UREA NITROGEN 65 MG/DL (7-18); BUN/CREATININE RATIO 33.7 (5.4-32.0); CALCIUM 9.1 MG/DL (8.5-10.1); CHLORIDE 99 MMOL/L (99-107); CREATININE 1.93 MG/DL (0.60-1.10); GLUCOSE 113 MG/DL (70-104); POTASSIUM 5.2 MMOL/L (3.5-5.1); SODIUM 134 MMOL/L (135-145); TOTAL CARBON DIOXIDE 24.4 MMOL/L (24-32); TOTAL PROTEIN 7.2 G/DL (6.4-8.2); eGFR 34 ML/MIN
--- NOTE | 2020-07-13 10:29 | NUR ---
[id number] Frederick Hamlin, has order to place midline for dobutamine gtt. Thank you! ext [phone]
[2020-07-13] MEDS: DOBUTamine-DoBUTrex 500mg/D5W 250 ML IV SCH (11:35)
--- NOTE | 2020-07-13 16:01 | NUR ---
PAGER ID: [phone] MESSAGE: [phone] Ferderick Hamlin, v-paced, SR/ST in and out of a-fib. Multiple PVC's. Not new but rate trends higher 110's-140's. Asymptomatic. Carolann MIRANDA [phone]
[2020-07-13 18:08] LABS: MAGNESIUM 2.1 MG/DL (1.5-2.4); PHOSPHORUS 3.2 MG/DL (2.3-4.5)
--- NOTE | 2020-07-13 18:35 | NUR ---
Problems reprioritized. Patient report given, questions answered & plan of care reviewed with Camryn MIRANDA. Patient is eating dinner, reviewed rhythms with NOC nurse and she is aware of ramakrishna order given if HR>140 sustains. Pt. is asymptomatic.
[2020-07-13] MEDS: furosemide 20 MG/2 ML vial IV SCH (21:00)
[2020-07-14] VITALS (8 sets, daily range): BP systolic 93–111; BP diastolic 64–94
--- NOTE | 2020-07-14 06:32 | NUR ---
Patient in room PCU 3026. I have received report from Camryn MIRANDA and had the opportunity to ask questions and assume patient care.
[2020-07-14 06:59] LABS: BASOPHILS % (AUTO) 0.5 % (0-1); EOSINOPHILS # (AUTO) 0.1 X10'3 (0-0.9); EOSINOPHILS % (AUTO) 1.4 % (0-6); HEMATOCRIT 44.9 % (42.0-52.0); HEMOGLOBIN 14.6 g/dl (14.0-17.9); LYMPHOCYTES # (AUTO) 1.5 X10'3 (1.1-4.8); MEAN CORPUSCULAR HEMOGLOBIN 29.8 PG (27.0-31.0); MEAN CORPUSCULAR HGB CONC 32.4 g/dL (33.0-36.5); MEAN CORPUSCULAR VOLUME 91.9 FL (78-98); MEAN PLATELET VOLUME 9.1 FL (7.4-10.4); MONOCYTES # (AUTO) 1.1 X10'3 (0-0.9); MONOCYTES % (AUTO) 15.6 % (2-12); NEUTROPHILS # (AUTO) 4.6 X10'3 (1.8-7.7); NEUTROPHILS % (AUTO) 62.5 % (42-75); PLATELET COUNT 131 X10'3 (140-440); RED BLOOD COUNT 4.89 X10'6 (4.70-6.10); RED CELL DISTRIBUTION WIDTH 17.7 % (11.5-14.5); WHITE BLOOD COUNT 7.3 X10'3 (4.5-11.0)
[2020-07-14 07:15] LABS: ALANINE AMINOTRANSFERASE 30 U/L (12-78); ALBUMIN 3.3 G/DL (3.4-5.0); ALBUMIN/GLOBULIN RATIO 1.1 (1.1-1.5); ALKALINE PHOSPHATASE 62 IU/L (46-116); ANION GAP 9 (8-16); ASPARTATE AMINO TRANSFERASE 29 U/L (10-37); BILIRUBIN,TOTAL 1.8 MG/DL (0.1-1.0); BLOOD UREA NITROGEN 62 MG/DL (7-18); BUN/CREATININE RATIO 37.3 (5.4-32.0); CALCIUM 8.8 MG/DL (8.5-10.1); CHLORIDE 100 MMOL/L (99-107); CREATININE 1.66 MG/DL (0.60-1.10); GLUCOSE 91 MG/DL (70-104); PHOSPHORUS 3.7 MG/DL (2.3-4.5); POTASSIUM 4.5 MMOL/L (3.5-5.1); SODIUM 136 MMOL/L (135-145); TOTAL CARBON DIOXIDE 26.9 MMOL/L (24-32); TOTAL PROTEIN 6.2 G/DL (6.4-8.2); eGFR 40 ML/MIN
[2020-07-14] MEDS: furosemide 20 MG/2 ML vial IV SCH ×2 (07:27→20:16)
[2020-07-14] MEDS: losartan 25mg tablet PO SCH (07:27)
[2020-07-14] MEDS: enoxaparin 40mg/0.4ml syringe SUBCUT SCH (07:28)
[2020-07-14] MEDS: HYDROcodone/acetaminophen 10/325mg tab PO PRN ×2 (07:28→18:00)
[2020-07-14] MEDS: K and/or MAG REPLACEMENT MC SCH ×2 (08:00→20:00)
[2020-07-14 08:01] LABS: TOTAL CELLS COUNTED 100
[2020-07-14 08:04] LABS: ANISOCYTOSIS 1+; PLATELET ESTIMATE DECREASED
[2020-07-14 08:05] LABS: ELLIPTOCYTES FEW; SCHISTOCYTES FEW
--- NOTE | 2020-07-14 08:10 | NUR ---
Dr. Cabrales and nurse at bedside with patient. MD aware of patient's heart rhythm. MD is to be contacted if rate is above 150s or if rythm changes. Will continue to monitor. Pt is on a bedside monitor as well .
[2020-07-14] MEDS: DOBUTamine-DoBUTrex 500mg/D5W 250 ML IV SCH (14:19)
--- NOTE | 2020-07-14 18:26 | NUR ---
Problems reprioritized. Patient report given, questions answered & plan of care reviewed with Sheri MIRANDA.
--- NOTE | 2020-07-14 19:44 | NUR ---
Patient in room PCU 3026. I have received report from RUTH Hamilton and had the opportunity to ask questions and assume patient care. No signs of distress. Safety measures in place, bed in low and locked position. Call light and personal items within reach. Will continue to monitor for remainder of shift.
[2020-07-15] MEDS: HYDROcodone/acetaminophen 10/325mg tab PO PRN ×2 (00:55→08:21)
[2020-07-15 02:00] VITALS: BP 93/77
[2020-07-15 06:00] VITALS: BP 125/80
--- NOTE | 2020-07-15 06:30 | NUR ---
Patient in room PCU 3026. I have received report from RUTH Castano and had the opportunity to ask questions and assume patient care.
--- NOTE | 2020-07-15 06:32 | NUR ---
Problems reprioritized. Patient report given, questions answered & plan of care reviewed with RUTH Roth. Patient resting in bed. No signs of distress. Medications administered as ordered, Dobutamine running. Care plan followed, worklist complete. Safety measures in place, bed in low and locked position. Call light and personal items within reach. Will continue to monitor for remainder of shift.
[2020-07-15] MEDS: K and/or MAG REPLACEMENT MC SCH (07:00)
[2020-07-15 08:00] VITALS: BP 106/75
[2020-07-15] MEDS: furosemide 20 MG/2 ML vial IV SCH (08:14)
[2020-07-15] MEDS: losartan 25mg tablet PO SCH (08:14)
[2020-07-15] MEDS: enoxaparin 40mg/0.4ml syringe SUBCUT SCH (08:14)
[2020-07-15 10:00] VITALS: BP 111/68
[2020-07-15 11:00] VITALS: BP 106/78
[2020-07-15 13:00] VITALS: BP 109/69
--- NOTE | 2020-07-15 15:05 | NUR ---
EMS came and picked up patient for transport to [facility]. [facility] nurse went with patient due to Dobutamine gtt. Report called to [facility]. [facility] for transfer per Dr. Yanez.
== END 2020-07-15 15:02 | DRG 280 ==
LOC: ER 17:11 → ED HOLD 07-07 01:48 → PCU 3S 07-07 06:11
PROVIDERS: ADMIT Family Medicine; ATTEND Internal Medicine
PROC: CB121ZZ Planar Nuclear Medicine Imaging of Lungs and Bronchi using Technetium 99m (Tc-99m) (ICD-10-PCS; principal; 2020-07-07)
DX: I13.0 Hypertensive heart and chronic kidney disease with heart failure and stage 1 through stage 4 chronic kidney disease, or unspecified chronic kidney disease (principal); I50.23 Acute on chronic systolic (congestive) heart failure; I21.A1 Myocardial infarction type 2; J96.20 Acute and chronic respiratory failure, unspecified whether with hypoxia or hypercapnia; N17.9 Acute kidney failure, unspecified; G89.29 Other chronic pain; M54.5 Low back pain; Z20.828 Contact with and (suspected) exposure to other viral communicable diseases; I95.9 Hypotension, unspecified; I48.0 Paroxysmal atrial fibrillation; I27.20 Pulmonary hypertension, unspecified; Z60.2 Problems related to living alone; R79.89 Other specified abnormal findings of blood chemistry; E87.5 Hyperkalemia; I25.10 Atherosclerotic heart disease of native coronary artery without angina pectoris; I50.84 End stage heart failure; N18.9 Chronic kidney disease, unspecified; Z79.899 Other long term (current) drug therapy; Z95.810 Presence of automatic (implantable) cardiac defibrillator; Z88.8 Allergy status to other drugs, medicaments and biological substances
CPT/HCPCS: 36415; 36600; 71045; 76937; 78582; 80053; 80061; 82803; 83615; 83735; 83880; 84100; 84145; 84484; 85007; 85008; 85018; 85025; 85379; 85730; 86140; 87081; 87502; 87503; 87635; 93005; 93306; 93308; 96374; 96375; 97116; 97162; 97530; 99285; A9539; A9540; C9803; G0378; J0696; J1250; J1644; J1650; J1940; J2405; J7030